=== PATIENT | male | born 1995 | race Caucasian/White ===

== ENCOUNTER 2017-02-02 16:43 | Emergency (ER) | payer OTHER, SELFPAY ==
[2017-02-02] MEDS ORDERED: Ondansetron ODT 4 MG TAB ONE (17:15)
[2017-02-02] MEDS ORDERED: Acetaminophen 500 MG TAB ONE (17:41)
--- NOTE | 2017-02-02 18:08 | CT ---
CT BRAIN WITHOUT CONTRAST: History: Injury. Comparison: None. FINDINGS: No acute territory infarct or hemorrhage. No midline shift or mass effect. Ventricular size and extra axial CSF spaces are normal. There is extensive paranasal sinus thickening along the ethmoids. Evidence of prior sinus surgery. IMPRESSION: No acute intracranial abnormality. POS: [facility]
== END 2017-02-02 17:55 | disposition home or self-care (01) ==
LOC: SCSER 16:43
DX: S06.0X0A Concussion without loss of consciousness, initial encounter (principal); W22.8XXA Striking against or struck by other objects, initial encounter; Y99.0 Civilian activity done for income or pay
CPT/HCPCS: 70450; Q0162

== ENCOUNTER 2018-05-01 10:27 | Emergency (ER) | payer BC | END 2018-05-01 11:31 | disposition home or self-care (01) | LOC: SCSER 10:27 | DX: J03.90 Acute tonsillitis, unspecified (principal) | CPT/HCPCS: 99283 ==